=== PATIENT | female | born 1995 ===

== ENCOUNTER 2016-12-15 15:57 | Emergency (ER) | payer OTHER, SELFPAY ==
[2016-12-15 16:06] VITALS: BP 115/65; PULSE 98; RESP 18; TEMP 98; O2SAT 100
[2016-12-15 17:07] LABS: BASO # 0.1 K/uL (0.0-0.2); BASO % 0.5 % (0.0-2.0); EOS # 0.1 K/uL (0.0-0.7); EOS % 0.7 % (0.0-4.0); HEMATOCRIT 41.7 % (34.0-47.0); LYMPH # 2.5 K/uL (1.0-4.3); LYMPH % 22.1 % (20.0-40.0); MEAN CELL VOLUME 92.7 fl (81.0-99.0); MEAN CORPUSCULAR HEMOGLOBIN 30.6 pg (27.0-31.0); MEAN PLATELET VOLUME 9.3 fl (7.2-11.7); MONO # 0.7 K/uL (0.0-0.8); NEUT # 8.1 K/uL (1.8-7.0); NEUT % 70.7 % (50.0-75.0); RED CELL DISTRIBUTION WIDTH 12.6 % (11.5-14.5); WHITE BLOOD COUNT 11.4 K/uL (4.8-10.8)
--- NOTE | 2016-12-15 17:17 | ED PDOC ---
HPI: Female Pain Time Seen by Provider: 12/15/16 16:35 Chief Complaint (Nursing): Female Genitourinary Chief Complaint (Provider): Repeat Testing s/p Abnormal OB US History Per: Patient History/Exam Limitations: no limitations Current Symptoms Are (Timing): Still Present Associated Symptoms: Other (no abdominal pain, dizziness) Additional Complaint(s): Tari Luna is a 21 year old female, with an EGA of approximately 5.5 weeks and no pertinent past medical history, who presents to the ED on 12/10 for reevaluation after an abnormal OB US, performed 6 days prior to arrival within the ED, in which there had been a visible yolk sac but no gestational sac. Patient reports having been evaluated within the OB Clinic this morning, at which time a pelvic exam had been done, and that she has experienced some vaginal spotting since that initial US. Denies any significant abdominal pain or dizziness. PMD: [facility] Past Medical History Reviewed: Historical Data, Nursing Documentation, Vital Signs Vital Signs: Last Vital Signs Temp 98.0 F 12/15/16 16:04 Pulse 98 H 12/15/16 16:04 Resp 18 12/15/16 16:04 BP 115/65 12/15/16 16:04 Pulse Ox 100 12/15/16 16:04 - Medical History PMH: No Chronic Diseases - Surgical History Surgical History: No Surg Hx - Family History Family History: States: Unknown Family Hx - Home Medications Home Medications: Ambulatory Orders Medication Instructions Recorded Vit Calc,Iron,Folic 1 each PO DAILY #14 tablet 12/15/16 [ Vitamins] - Allergies Allergies/Adverse Reactions: Allergies Allergy/AdvReac Type Severity Reaction Status Date / Time No Known Allergies Allergy Verified 12/06/16 22:55 Review of Systems Gastrointestinal: Negative for: Abdominal Pain Genitourinary Female: Positive for: Vaginal Bleeding (spotting) Neurological: Negative for: Dizziness Physical Exam - Reviewed Nursing Documentation Reviewed: Yes Vital Signs Reviewed: Yes - Physical Exam Appears: Positive for: Non-toxic, No Acute Distress Head Exam: Positive for: ATRAUMATIC, NORMOCEPHALIC Skin: Positive for: Normal Color, Warm, Dry. Negative for: Pallor Eye Exam: Positive for: Normal appearance, PERRL Cardiovascular/Chest: Positive for: Regular Rate, Rhythm. Negative for: Murmur Respiratory: Positive for: Normal Breath Sounds. Negative for: Respiratory Distress Gastrointestinal/Abdominal: Positive for: Normal Exam, Soft. Negative for: Tenderness Back: Positive for: Normal Inspection Neurologic/Psych: Positive for: Alert, Oriented - Laboratory Results Result Diagrams: 12/15/16 16:55 12/15/16 16:55 Urine POC: Positive - ECG O2 Sat by Pulse Oximetry: 100 (RA) Pulse Ox Interpretation: Normal - CT Scan/US OB Transvaginal US Other Rad Studies (CT/US): Read By Radiologist, Radiology Report Reviewed Other Rad Interpretation: see MDM Medical Decision Making Medical Decision Makin:35 Initial Impression: vaginal spotting in early Previous Records Reviewed: 12/06/16 ED Evaluation (Patient Rh+ on last visit) Initial Plan: * OB Transvaginal US * Labs * Beta HCG, Quantitiative * Upreg * Udip * Reevaluation Upreg is (+). 17:46 US report reviewed: Findings: The uterus measures approximately 8.7 x 4.7 x 6.1 cm. Anteverted. Cervix length measures approximately 3.9 cm. There is a single intrauterine fetus present. 1 mm yolk sac. The gestational sac measures 2.4 cm and is compatible with a gestational age of 7 weeks 0 days. The crown-rump length measures 1 cm and is compatible with a gestational age of 7 weeks 0 days. 0.9 x 0.7 x 0.9 cm probable subchorionic hemorrhage. There is heart motion which measured 126.3 BPM. The right ovary measures 3.0 x 1.9 x 2.5 cm. The left ovary measures 2.9 x 1.6 x 2.2 cm. Blood flow was demonstrated to both ovaries. Small pelvic free fluid. Impression: Live single intrauterine with estimated gestational age weeks 0 days. heart rate 126.3 bpm. 0.9 x 0.7 x 0.9 cm probable subchorionic hemorrhage. Small pelvic free fluid. Advise an anomaly screen at 16-18 weeks gestational age 18:20 Upon provider reevaluation patient is medically stable and requires no further treatment in the ED at this time. Patient will be discharged home with instructions for pelvic rest until she is able to follow up with her [facility] ( instructions given using [employer] Maker #[id number]). Counseling was provided and all questions were answered regarding diagnosis and need for follow up. There is agreement to discharge plan. Return to ED for both new/worsening of symptoms. Clinical Impression: threatened Scribe Attestation: Documented by Elaine Nagy, acting as a scribe for Gene Humphries III, DO. Provider Scribe Attestation: All medical record entries made by the Scribe were at my direction and personally dictated by me. I have reviewed the chart and agree that the record accurately reflects my personal performance of the history, physical exam, medical decision making, and the department course for this patient. I have also personally directed, reviewed, and agree with the discharge instructions and disposition. Disposition - Clinical Impression Clinical Impression: Threatened - Patient ED Disposition Is Patient to be Admitted: No Counseled Patient/Family Regarding: Studies Performed, Diagnosis, Need For Followup, Rx Given - Disposition [facility] Disposition: Routine/Home Disposition Time: 18:05 Condition: STABLE Additional Instructions: Followup with clinic and OB doctor as directed. Return to ER for any worse or new symptoms. Avoid sex until cleared by your doctor. Prescriptions: Vit Calc,Iron,Folic [ Vitamins] 1 each PO DAILY #14 tablet Instructions: Threatened Miscarriage (ED)
[2016-12-15 17:21] LABS: ALB/GLOB RATIO 1.3 (1.0-2.1); ALKALINE PHOSPHATASE 53 U/L (38-126); ALT/SGPT 48 U/L (9-52); AST/SGOT 31 U/L (14-36); BILIRUBIN,TOTAL 0.5 mg/dl (0.2-1.3); BLOOD UREA NITROGEN 9 mg/dl (7-17); CARBON DIOXIDE 21 mmol/L (22-30); CHLORIDE 101 mmol/L (98-107); GFR AFRICAN-AMERICAN > 60; GLUCOSE,RANDOM 93 mg/dL (65-105); POTASSIUM 3.6 MMOL/L (3.6-5.0); SODIUM 139 mmol/l (132-148); TOTAL PROTEIN 8.1 G/DL (6.3-8.2)
--- NOTE | 2016-12-15 17:48 | US ---
Indication: Threatened , repeat ultrasound for abnormal ultrasound x2 days Comparison: Ob transvaginal ultrasound performed 12/07/16 Technique: Ob transvaginal ultrasound Findings: The uterus measures approximately 8.7 x 4.7 x 6.1 cm. Anteverted. Cervix length measures approximately 3.9 cm. There is a single intrauterine fetus present. 1 mm yolk sac. The gestational sac measures 2.4 cm and is compatible with a gestational age of 7 weeks 0 days. The crown-rump length measures 1 cm and is compatible with a gestational age of 7 weeks 0 days. 0.9 x 0.7 x 0.9 cm probable subchorionic hemorrhage. There is heart motion which measured 126.3 BPM. The right ovary measures 3.0 x 1.9 x 2.5 cm. The left ovary measures 2.9 x 1.6 x 2.2 cm. Blood flow was demonstrated to both ovaries. Small pelvic free fluid. Impression: Live single intrauterine with estimated gestational age weeks 0 days. heart rate 126.3 bpm. 0.9 x 0.7 x 0.9 cm probable subchorionic hemorrhage. Small pelvic free fluid. Advise an anomaly screen at 16-18 weeks gestational age
== END 2016-12-15 18:40 | disposition home or self-care (01) ==
LOC: H.ER 15:57
DX: O20.0 Threatened abortion (principal); Z3A.18 18 weeks gestation of pregnancy

== ENCOUNTER 2017-01-09 21:54 | Emergency (ER) | payer SELFPAY ==
[2017-01-09 22:25] VITALS: BP 130/79; PULSE 80; RESP 18; TEMP 98.6; O2SAT 100
--- NOTE | 2017-01-09 23:51 | ED PDOC ---
HPI: Female Pain Time Seen by Provider: 01/09/17 22:51 Chief Complaint (Nursing): Female Genitourinary Chief Complaint (Provider): pelvic pain, spotting History Per: Patient Additional Complaint(s): LMP 11/10/2016, G1 c/o lower abd pain and vaginal bleeding x 1 day, none now. Past Medical History Reviewed: Historical Data, Nursing Documentation, Vital Signs Vital Signs: Last Vital Signs Temp 98.6 F 01/09/17 22:22 Pulse 80 01/09/17 22:22 Resp 18 01/09/17 22:22 BP 130/79 01/09/17 22:22 Pulse Ox 100 01/09/17 22:22 - Medical History PMH: No Chronic Diseases - Family History Family History: States: No Known Family Hx - Social History Current smoker - smoking cessation education provided: No Alcohol: None Drugs: Denies - Home Medications Home Medications: Ambulatory Orders Medication Instructions Recorded Vit Calc,Iron,Folic 1 each PO DAILY #14 tablet 12/15/16 [ Vitamins] - Allergies Allergies/Adverse Reactions: Allergies Allergy/AdvReac Type Severity Reaction Status Date / Time No Known Allergies Allergy Verified 12/06/16 22:55 Review of Systems ROS Statement: Except As Marked, All Systems Reviewed And Found Negative Genitourinary Female: Positive for: Vaginal Bleeding, Pelvic Pain Physical Exam - Reviewed Nursing Documentation Reviewed: Yes Vital Signs Reviewed: Yes - Physical Exam Appears: Positive for: Well, Non-toxic, No Acute Distress Skin: Positive for: Normal Color, Warm, DRY Cardiovascular/Chest: Positive for: Regular Rate, Rhythm Respiratory: Positive for: CNT, Normal Breath Sounds Gastrointestinal/Abdominal: Positive for: Normal Exam, Bowel Sounds, Soft. Negative for: Tenderness Back: Negative for: L CVA Tenderness, R CVA Tenderness Neurologic/Psych: Positive for: Alert, Oriented - Laboratory Results Result Diagrams: 01/09/17 23:50 01/09/17 23:50 - ECG O2 Sat by Pulse Oximetry: 100 Medical Decision Making Medical Decision Making: labs wnl. u/s shows SLIUP. pos FH. Rh pos. will d/c home to f/u OBGYN. Disposition - Clinical Impression Clinical Impression: Threatened - Patient ED Disposition Is Patient to be Admitted: No - Disposition Referrals: [facility] [Outside] Disposition: Routine/Home Disposition Time: 02:23 Condition: GOOD Instructions: Threatened Miscarriage (ED) Print Language: ECUADOREAN
[2017-01-10 00:02] LABS: BASO # 0.1 K/uL (0.0-0.2); BASO % 0.4 % (0.0-2.0); EOS # 0.1 K/uL (0.0-0.7); EOS % 0.8 % (0.0-4.0); HEMATOCRIT 42.2 % (34.0-47.0); LYMPH # 3.4 K/uL (1.0-4.3); LYMPH % 21.6 % (20.0-40.0); MEAN CELL VOLUME 92.4 fl (81.0-99.0); MEAN CORPUSCULAR HEMOGLOBIN 30.2 pg (27.0-31.0); MEAN CORPUSCULAR HGB CONC 32.7 g/dL (33.0-37.0); MEAN PLATELET VOLUME 9.4 fl (7.2-11.7); MONO % 6.3 % (0.0-10.0); NEUT # 11.2 K/uL (1.8-7.0); NEUT % 70.9 % (50.0-75.0); RED CELL DISTRIBUTION WIDTH 12.8 % (11.5-14.5); WHITE BLOOD COUNT 15.9 K/uL (4.8-10.8)
[2017-01-10 00:13] LABS: RBC URINE < 1 /hpf (0-3); URINE BILIRUBIN NEGATIVE (NEGATIVE); URINE BLOOD NEGATIVE (NEGATIVE); URINE COLOR STRAW (YELLOW); URINE GLUCOSE (UA) NEG (Normal); URINE KETONE NEGATIVE (NEGATIVE); URINE LEUKOCYTE ESTERASE TRACE Leu/uL (Negative); URINE PROTEIN NEGATIVE (NEGATIVE); URINE UROBILINOGEN 0.2-1.0 mg/dL (0.2-1.0); WBC URINE 4 /hpf (0-5)
[2017-01-10 00:14] LABS: BLOOD UREA NITROGEN 10 mg/dl (7-17); CALCIUM 10.2 mg/dL (8.4-10.2); CARBON DIOXIDE 21 mmol/L (22-30); CHLORIDE 103 mmol/L (98-107); GFR AFRICAN-AMERICAN > 60; GLUCOSE,RANDOM 87 mg/dL (65-105); SODIUM 139 mmol/l (132-148)
--- NOTE | 2017-01-10 02:48 | US ---
EXAM: US First Trimester, Transabdominal CLINICAL HISTORY: 21 years old, female; Signs and symptoms; Lmp or gestational age (in weeks): Lmp 08/07/2016; Other: Saw a little blood today; TECHNIQUE: Real-time transabdominal obstetrical ultrasound of the maternal pelvis and a first trimester with image documentation. EXAM DATE/TIME: 01/10/2017 1:42 AM COMPARISON: No relevant prior studies available. FINDINGS: Ultrasound performed on 12/21/2016 demonstrated a single live IUP 7 weeks 1 day. The uterus measures 10 x 9.5 x 9 cm. There is a live intrauterine . Measurements correspond to a gestational age of 10 weeks 3 days. A heart rate of 143 - 156 beats per minute was obtained. Early placental tissue is noted in the fundus. The maternal ovaries are normal bilaterally. Color flow and doppler vascular waveforms were demonstrated to both ovaries. IMPRESSION: Single live IUP 10 weeks 3 days.
== END 2017-01-10 02:53 | disposition home or self-care (01) ==
LOC: H.ER 21:54
DX: O20.0 Threatened abortion (principal); R10.2 Pelvic and perineal pain; Z3A.10 10 weeks gestation of pregnancy

== ENCOUNTER 2017-05-06 13:06 | Observation (INO) | payer SELFPAY ==
[2017-05-06 13:17] VITALS: BP 135/45; RESP 18; TEMP 98.5; O2SAT 99
--- NOTE | 2017-05-06 14:15 | ED PDOC ---
HPI: General Adult Time Seen by Provider: 05/06/17 13:20 Chief Complaint (Nursing): Chest Pain History Per: Patient Additional Complaint(s): Pt. states for the past 2 days she's had atraumatic intermittent mid-sternal chest pain radiating to her back. Reports pain is associated with SOB as well. Of note, pt. is 27 weeks without any complications. States that she has already had care with Dr. Lluvia Ontiveros. Denies hx of DVT/PE, hemoptysis, cough, leg pain, vaginal bleeding, abdominal pain. Past Medical History Reviewed: Historical Data, Nursing Documentation, Vital Signs Vital Signs: Last Vital Signs Temp 98.5 F 05/06/17 13:15 Pulse 85 05/06/17 15:28 Resp 18 05/06/17 13:15 BP 135/45 L 05/06/17 13:15 Pulse Ox 99 05/06/17 15:28 - Family History Family History: States: No Known Family Hx - Home Medications Home Medications: Ambulatory Orders Medication Instructions Recorded Vit Calc,Iron,Folic 1 each PO DAILY #14 tablet 12/15/16 [ Vitamins] Multivit/Folic Acid/I 1 tab PO DAILY #30 tab 01/10/17 [ Plus] - Allergies Allergies/Adverse Reactions: Allergies Allergy/AdvReac Type Severity Reaction Status Date / Time No Known Allergies Allergy Verified 05/06/17 13:15 Review of Systems ROS Statement: Except As Marked, All Systems Reviewed And Found Negative Respiratory: Positive for: Shortness of Breath, Pleuritic Pain Physical Exam - Physical Exam Appears: Positive for: Well, Non-toxic, No Acute Distress Skin: Positive for: Normal Color, Warm. Negative for: Rash Eye Exam: Positive for: Normal appearance Neck: Positive for: Normal, Painless ROM Cardiovascular/Chest: Positive for: Regular Rate, Rhythm. Negative for: Chest Non Tender (mid-sternal chest pain), Tachycardia Respiratory: Positive for: Normal Breath Sounds. Negative for: Wheezing, Respiratory Distress Gastrointestinal/Abdominal: Positive for: Normal Exam, Soft, Other (gravid). Negative for: Tenderness Back: Positive for: Normal Inspection. Negative for: Vertebral Tenderness Extremity: Positive for: Normal ROM. Negative for: Calf Tenderness (b/l) Neurologic/Psych: Positive for: Alert, Oriented - Laboratory Results Result Diagrams: 05/06/17 14:15 05/06/17 14:00 - ECG ECG: Positive for: Interpreted By Me ECG Rhythm: Positive for: Sinus Rhythm. Negative for: ST/T Changes Rate: 85 O2 Sat by Pulse Oximetry: 99 - Radiology X-Ray: Interpreted by Me (CXR) X-Ray Interpretation: No Acute Disease - Progress ED Course And Treament: Labs ordered. Duplex b/l lower extremity ordered. Case d/w Dr. Ramos who agrees with plan and recommends VQ scan and CXR in addition. Case d/w Dr. Luna, radiologist, who states pt. can get VQ scan. Consent obtained from pt. to get VQ scan using [employer] outside sales representative [id number]. Risks of radiation exposure discussed with patient but pt. still agrees to testing. ED OBSERVATION Discharge: Yes Date of observation admission: 05/06/17 Time of observation admission: 14:16 - Observation admission statement Patient is being placed in observation because:: Chest pain, SOB - Progress Note Progress Note: 05/06/17 14:38 Pt. was evaluated by Dr. Luna who recommended CTA chest w/ IV contrast instead. CTA chest w/ IV contrast ordered. 05/06/17 15:27 D-dimer: 966. 05/06/17 17:00 CTA chest w/ IV contrast: negative for PE Duplex b/l lower extremity: negative CXR: NAD. Pt. informed of results and instructed to f/u with Dr. Ontiveros for further evaluation. Also told to take Tylenol at home for pain. Disposition - Clinical Impression Clinical Impression: Chest wall pain - Patient ED Disposition Is Patient to be Admitted: No - Disposition Disposition: Routine/Home Disposition Time: 17:01 Condition: STABLE
[2017-05-06 14:17] VITALS: PULSE 85
[2017-05-06 14:20] LABS: BASO % 0.3 % (0.0-2.0); EOS # 0.1 K/uL (0.0-0.7); EOS % 0.7 % (0.0-4.0); HEMOGLOBIN 11.1 g/dL (12.0-16.0); LYMPH # 2.4 K/uL (1.0-4.3); LYMPH % 21.5 % (20.0-40.0); MEAN CELL VOLUME 94.8 fl (81.0-99.0); MEAN CORPUSCULAR HEMOGLOBIN 31.1 pg (27.0-31.0); MEAN CORPUSCULAR HGB CONC 32.9 g/dL (33.0-37.0); MEAN PLATELET VOLUME 8.9 fl (7.2-11.7); MONO % 8.7 % (0.0-10.0); NEUT # 7.7 K/uL (1.8-7.0); NEUT % 68.8 % (50.0-75.0); RBC 3.55 Mil/uL (3.80-5.20); RED CELL DISTRIBUTION WIDTH 13.9 % (11.5-14.5); WHITE BLOOD COUNT 11.2 K/uL (4.8-10.8)
[2017-05-06 14:29] LABS: ALB/GLOB RATIO 1.3 (1.0-2.1); ALBUMIN 3.6 g/dL (3.5-5.0); ALT/SGPT 31 U/L (9-52); AST/SGOT 25 U/L (14-36); BLOOD UREA NITROGEN 6 mg/dl (7-17); CALCIUM 9.4 mg/dL (8.4-10.2); GFR AFRICAN-AMERICAN > 60; GFR NON-AFRICAN AMERICAN > 60
--- NOTE | 2017-05-06 14:54 | RAD ---
HISTORY: chest pain COMPARISON: No prior. FINDINGS: LUNGS: No active pulmonary disease. PLEURA: No significant pleural effusion identified, no pneumothorax apparent. CARDIOVASCULAR: Normal. OSSEOUS STRUCTURES: No significant abnormalities. VISUALIZED UPPER ABDOMEN: Normal. OTHER FINDINGS: None. IMPRESSION: No active disease.
--- NOTE | 2017-05-06 16:03 | CT ---
PROCEDURE: CT Chest with contrast (Pulmonary Angiogram) HISTORY: chest pain, SOB, 27 weeks . COMPARISON: None available. TECHNIQUE: Axial computed tomography images were obtained of the chest in the pulmonary arterial phase of enhancement. Coronal and sagittal reformatted images were created and reviewed. Intravenous contrast dose: 80 cc of Visipaque 320 Radiation dose: Total exam DLP = 193.53 mGy-cm. This CT exam was performed using one or more of the following dose reduction techniques: Automated exposure control, adjustment of the mA and/or kV according to patient size, and/or use of iterative reconstruction technique. FINDINGS: PULMONARY ARTERIES: Unremarkable. No pulmonary embolism. AORTA: No acute findings. No thoracic aortic aneurysm. LUNGS: Unremarkable. No nodule, mass or pulmonary consolidation. PLEURAL SPACES: Unremarkable. No effusion or pneuomothorax. HEART: Unremarkable. No cardiomegaly. No significant pericardial effusion. LYMPH NODES: No lymphadenopathy. BONES, CHEST WALL: Unremarkable. No fracture or destructive lesion OTHER FINDINGS: Unremarkable. IMPRESSION: Unremarkable CT pulmonary angiogram. No pulmonary embolus.
--- NOTE | 2017-05-06 16:51 | US ---
PROCEDURE: Bilateral lower extremity venous duplex Doppler. HISTORY: chest pain in COMPARISON: None available. TECHNIQUE: Bilateral common femoral, superficial femoral, popliteal and posterior tibial veins were evaluated. Flow was assessed with color Doppler, compressibility, assessment of phasic flow and augmentation response. FINDINGS: COMMON FEMORAL VEIN: Right CFV: Unremarkable. Left CFV: Unremarkable. SUPERFICIAL FEMORAL VEIN: Right SFV: Unremarkable. Left SFV: Unremarkable. POPLITEAL VEIN: Right Popliteal: Unremarkable. Left Popliteal: Unremarkable. POSTERIOR TIBIAL VEIN: Right PTV: Unremarkable. Left PTV: Unremarkable. OTHER FINDINGS: None. IMPRESSION: No evidence of deep venous thrombosis in the right or left lower extremity.
--- NOTE | 2017-05-07 14:21 | CARD ---
APPROVED REPORT EKG Measurement Heart [id number] <Conclusion> Normal sinus rhythm Possible Left atrial enlargement Borderline ECG
== END 2017-05-06 17:02 | disposition home or self-care (01) ==
LOC: H.ER 13:06 → H.EROBSV 14:16
PROVIDERS: ADMIT Emergency Medicine; ATTEND Emergency Medicine
DX: R07.89 Other chest pain (principal); Z3A.27 27 weeks gestation of pregnancy